=== PATIENT | female | born 1965 | race Two or more races ===

== ENCOUNTER → 2016-07-04 | Outpatient (CLI) | payer OTHER | LOC: FIMAGING 09:58 | DX: Z12.31 Encounter for screening mammogram for malignant neoplasm of breast (principal) | CPT/HCPCS: G0202 ==

== ENCOUNTER → 2017-07-19 | Outpatient (CLI) | payer OTHER | LOC: FIMAGING 15:36 | PROVIDERS: ATTEND Family Medicine | DX: Z12.31 Encounter for screening mammogram for malignant neoplasm of breast (principal) ==

== ENCOUNTER → 2018-07-28 | Outpatient (CLI) | payer OTHER | LOC: FIMAGING 15:37 | DX: Z12.31 Encounter for screening mammogram for malignant neoplasm of breast (principal) ==